=== PATIENT | male | born 1990 ===

== ENCOUNTER 2019-09-29 13:34 | Inpatient (IN) | payer SELFPAY ==
[2019-09-29 14:29] LABS: Basophils % (Auto) 0.9 % (0.0-1.8); Eosinophils # (Auto) 0.1 K/mm3 (0.0-0.4); Eosinophils % (Auto) 1.7 % (0.0-4.3); Hemoglobin 16.7 gm/dl (11.8-15.2); Lymphocytes # (Auto) 2.7 K/mm3 (1.2-5.4); Lymphocytes % (Auto) 46.7 % (13.4-35.0); Mean Corpuscular HGB Conc 35 % (32-34); Mean Corpuscular Volume 89 fl (84-94); Monocytes # (Auto) 0.3 K/mm3 (0.0-0.8); Monocytes % (Auto) 5.2 % (0.0-7.3); Platelet Count 192 K/mm3 (140-440); Red Blood Count 5.37 M/mm3 (3.65-5.03); Red Cell Distribution Width 13.4 % (13.2-15.2)
[2019-09-29 14:39] LABS: BUN/Creatinine Ratio 13; Blood Urea Nitrogen 12 mg/dL (9-20); Calcium 9.4 mg/dL (8.4-10.2); Hemolysis Index 45
--- NOTE | 2019-09-29 14:52 | Emergency Department Report ---
Blank Doc - Documentation Documentation: 29 y/o diabetic man with elevated blood sugar labs indicate DKA\ Plan admission
[2019-09-29] MEDS ORDERED: DEXTROSE 50% IN WATER (25GM) 50 ML SYRINGE IV PRN (14:59)
[2019-09-29] MEDS ORDERED: SODIUM CHLORIDE 0.9% 1000 ML 1,000 ML IV ONE ×2 (14:59→15:01)
[2019-09-29] MEDS ORDERED: INSULIN REGULAR, HUMAN 100 UNITS in SODIUM CHLORIDE 0.9% 99 ML IV SCH ×2 (15:00→21:00)
--- NOTE | 2019-09-29 15:12 | Emergency Department Report ---
- General Chief complaint: Hyperglycemia Stated complaint: ELEVATED GLOCUSE Time Seen by Provider: 09/29/19 14:48 Source: patient Mode of arrival: Ambulatory Limitations: No Limitations - History of Present Illness Initial comments: 29-year-old male with a past medical history [id number] diabetes presents to the hospital planing of hyperglycemia, fatigue, increased thirst, and increased urination. Patient has been a diabetic for the last 2-1/2 years. He has a history of DKA during admission diagnosis but has not required home insulin use. For the last 1.5 months patient has been out of metformin due to loss of insurance. For the last 1 week patient has been having fatigue, increased thirst, increased urination and had a syncopal episode last weekend. He denies nausea, vomiting, dysuria, fever, shortness of breath, or pain. - Related Data Allergies Allergy/AdvReac Type Severity Reaction Status Date / Time No Known Allergies Allergy Verified 09/29/19 15:10 ED Review of Systems ROS: Stated complaint: ELEVATED GLOCUSE Other details as noted in HPI Comment: All other systems reviewed and negative ED Past Medical Hx - Past Medical History Previous Medical History?: Yes Hx Diabetes: Yes - Surgical History Past Surgical History?: Yes ED Physical Exam - General Limitations: No Limitations - Other Other exam information: General: No acute distress Head: Atraumatic Eyes: normal appearance ENT: Dry mucous membranes Neck: Normal appearance, no midline tenderness Chest: Clear to auscultation bilaterally CV: Regular rate and rhythm Abdomen: Soft, normal bowel sounds, nontender, nondistended, no rebound or guarding Back: Normal inspection Extremity: Normal inspection, full range of motion Neuro: Alert O x 3, no facial asymmetry, speech clear, no gross motor sensory deficit Psych: Appropriate behavior Skin: No rash ED Course Vital Signs 09/29/19 09/29/19 15:16 16:19 Temperature 98 F Pulse Rate 100 H 68 Respiratory 18 18 Rate Blood Pressure 144/82 107/60 [Left] O2 Sat by Pulse 100 Oximetry ED Medical Decision Making - Lab Data Result diagrams: 09/29/19 13:47 09/29/19 13:47 Lab Results 09/29/19 09/29/19 09/29/19 Range/Units 13:47 13:47 13:47 WBC 5.7 (4.5-11.0) K/mm3 RBC 5.37 H (3.65-5.03) M/mm3 Hgb 16.7 H (11.8-15.2) gm/dl Hct 48.0 H (35.5-45.6) % MCV 89 (84-94) fl MCH 31 (28-32) pg MCHC 35 H (32-34) % RDW 13.4 (13.2-15.2) % Plt Count 192 (140-440) K/mm3 Lymph % (Auto) 46.7 H (13.4-35.0) % [place] % (Auto) 5.2 (0.0-7.3) % Eos % (Auto) 1.7 (0.0-4.3) % Baso % (Auto) 0.9 (0.0-1.8) % Lymph # 2.7 (1.2-5.4) K/mm3 [place] # 0.3 (0.0-0.8) K/mm3 Eos # 0.1 (0.0-0.4) K/mm3 Baso # 0.0 (0.0-0.1) K/mm3 Seg Neutrophils % 45.5 (40.0-70.0) % Seg Neutrophils # 2.6 (1.8-7.7) K/mm3 VBG pH 7.268 L (7.320-7.420) Sodium 134 L (137-145) mmol/L Potassium 4.3 (3.6-5.0) mmol/L Chloride 91.0 L (98-107) mmol/L Carbon Dioxide 14 L (22-30) mmol/L Anion Gap 33 mmol/L BUN 12 (9-20) mg/dL Creatinine 0.9 (0.8-1.5) mg/dL Estimated GFR > 60 ml/min BUN/Creatinine Ratio 13 % Glucose 528 H* (75-100) mg/dL POC Glucose (70-105) Calcium 9.4 (8.4-10.2) mg/dL Phosphorus (2.5-4.5) mg/dL Magnesium (1.7-2.3) mg/dL 09/29/19 09/29/19 Range/Units 13:47 13:52 WBC (4.5-11.0) K/mm3 RBC (3.65-5.03) M/mm3 Hgb (11.8-15.2) gm/dl Hct (35.5-45.6) % MCV (84-94) fl MCH (28-32) pg MCHC (32-34) % RDW (13.2-15.2) % Plt Count (140-440) K/mm3 Lymph % (Auto) (13.4-35.0) % [place] % (Auto) (0.0-7.3) % Eos % (Auto) (0.0-4.3) % Baso % (Auto) (0.0-1.8) % Lymph # (1.2-5.4) K/mm3 [place] # (0.0-0.8) K/mm3 Eos # (0.0-0.4) K/mm3 Baso # (0.0-0.1) K/mm3 Seg Neutrophils % (40.0-70.0) % Seg Neutrophils # (1.8-7.7) K/mm3 VBG pH (7.320-7.420) Sodium (137-145) mmol/L Potassium (3.6-5.0) mmol/L Chloride (98-107) mmol/L Carbon Dioxide (22-30) mmol/L Anion Gap mmol/L BUN (9-20) mg/dL Creatinine (0.8-1.5) mg/dL Estimated GFR ml/min BUN/Creatinine Ratio % Glucose (75-100) mg/dL POC Glucose 433 H (70-105) Calcium (8.4-10.2) mg/dL Phosphorus 3.50 (2.5-4.5) mg/dL Magnesium 1.70 (1.7-2.3) mg/dL - Medical Decision Making Patient requires admission to the hospital for DKA treatment as indicated by anion gap acidosis. UA pending at disposition. Treatment initiated with normal saline bolus and insulin drip in the ED. Dr Castillo Hospitalist to admit. Admission orders ICU placed after discussion with Dr Castillo. critical care consult ordered UA with ketosis, no infection - Differential Diagnosis DKA, hyperglycemia, UTI Critical Care Time: No Critical care attestation.: If time is entered above; I have spent that time in minutes in the direct care of this critically ill patient, excluding procedure time. ED Disposition Clinical Impression: DKA (diabetic ketoacidoses), Noncompliance with medication regimen Disposition: 09 OP ADMIT IP TO THIS HOSP Is pt being admited?: Yes Condition: Stable Time of Disposition: 15:12 (Dr Castillo/hosp)
[2019-09-29 16:30] LABS: Bilirubin,Urine NEG (Negative); Blood,Urine NEG (Negative); Color,Urine Colorless (Yellow); Protein,Urine <15 mg/dL mg/dL (Negative); Urobilinogen,Urine < 2.0 mg/dL (<2.0); WBC,Urine < 1.0 /HPF (0.0-6.0)
[2019-09-29] MEDS ORDERED: D5W/0.45% NACL/KCL 20 MEQ 20 MEQ/1,000 ML BAG IV ONE (19:11)
[2019-09-29] MEDS ORDERED: D5W/0.45% NACL/KCL 20 MEQ 20 MEQ/1,000 ML BAG IV SCH ×3 (19:20→21:00)
--- NOTE | 2019-09-29 19:58 | History and Physical Report ---
History of Present Illness Date of examination: 09/29/19 Date of admission: 09/29/19 15:16 Chief complaint: Feeling weak for 1 week History of present illness: 29-year-old [place]uran speaking male with history of diabetes diagnosed 2-1/2 years ago comes in for high blood glucose levels, fatigue increased thirst and increased urination. Patient has not taken metformin for the last 6 weeks. Patient apparently ran out of insurance. Patient is not on insulin. Had a DKA episode 2-1/2 years ago for which she was on insulin drip. Not taking his metformin. No nausea or vomiting. Patient has a high blood glucose levels of 528. Ketones slightly positive. Acetone level pending. Past History Past Medical History: diabetes (Type 1 diabetes versus BIGG) Past Surgical History: No surgical history Social history: lives with family, full code. denies: smoking, alcohol abuse Family history: diabetes Medications and Allergies Allergies Allergy/AdvReac Type Severity Reaction Status Date / Time No Known Allergies Allergy Verified 09/29/19 15:10 Active Meds: Active Medications Dextrose (D50w (25gm) Syringe) 0 ml IV Q30MIN PRN; Protocol PRN Reason: Hypoglycemia Insulin Human Regular 100 (units/ Sodium Chloride) 100 mls @ 1 mls/hr IV TITR KAREN; Protocol Last Titration: 09/29/19 19:15 Dose: 2.5 units/hr, 2.5 mls/hr Documented by: Potassium Chloride/Dextrose/Sod Cl (D5w/0.45% Nacl/Kcl 20 Meq) 20 meq in 1,000 mls @ 125 mls/hr IV DIRECT KAREN Last Admin: 09/29/19 19:21 Dose: 125 mls/hr Documented by: Sodium Chloride (Sodium Chloride Flush Syringe 10 Ml) 10 ml IV PRN NR Stop: 09/29/19 23:50 Review of Systems All systems: negative Constitutional: weight loss, fatigue, weakness Ears, nose, mouth and throat: no ear pain, no ear discharge, no tinnitis, no decreased hearing, no nose pain, no nasal congestion, no nasal discharge, no sinus pressure, no sinus pain Cardiovascular: no chest pain, no orthopnea, no palpitations, no rapid/irregular heart beat, no edema, no syncope, no lightheadedness, no shortness of breath Respiratory: no cough, no cough with sputum, no excessive sputum, no hemoptysis, no shortness of breath, no dyspnea on exertion Gastrointestinal: no abdominal pain, no nausea, no vomiting, no diarrhea, no constipation, no change in bowel habits, no coffee ground emesis Genitourinary Male: urinary frequency, polyuria Rectal: no pain Musculoskeletal: no neck stiffness, no neck pain, no shooting arm pain, no arm numbness/tingling, no low back pain, no shooting leg pain, no leg numbness/t ingling, no redness of joints Integumentary: no rash, no pruritis, no redness, no sores, no wounds, no jaundice, no boils, no blisters Neurological: no head injury, no transient paralysis, no paralysis, no weakness, no parathesias, no numbness, no tingling, no seizures, no syncope, no tremors, no ataxia, no lack of coordination Endocrine: polyphagia, excessive thirst, polydipsia, polyuria, weight change, no cold intolerance, no heat intolerance Hematologic/Lymphatic: no easy bruising, no easy bleeding Allergic/Immunologic: no urticaria, no allergic rhinitis, no wheezing Exam - Constitutional Vitals: Temp Pulse Resp BP Pulse Ox 98 F 65 14 107/67 100 09/29/19 15:16 09/29/19 19:16 09/29/19 19:16 09/29/19 19:16 09/29/19 19:16 General appearance: Present: no acute distress, well-nourished - EENT Eyes: Present: PERRL ENT: hearing intact, clear oral mucosa, other (Tongue dry) - Neck Neck: Present: supple, normal ROM - Respiratory Respiratory effort: normal Respiratory: bilateral: CTA - Cardiovascular Heart rate: 78 Rhythm: regular Heart Sounds: Present: S1 & S2. Absent: rub, click - Extremities Extremities: no ischemia, pulses intact, pulses symmetrical, No edema Peripheral Pulses: within normal limits - Abdominal General gastrointestinal: Present: soft, non-tender, non-distended, normal bowel sounds Male genitourinary: Present: normal - Integumentary Integumentary: Present: clear, warm, dry - Musculoskeletal Musculoskeletal: gait normal, strength equal bilaterally - Psychiatric Psychiatric: appropriate mood/affect, intact judgment & insight - Neurologic Neurologic: CNII-XII intact, moves all extremities - Allied Health Allied health notes reviewed: nursing (Honduran language), case management LACI score - Laci Score Age > 65: (0) No Aspirin use within the Past 7 Days: (0) No 3 or more CAD Risk Factors: (0) No 2 or more Angina events in past 24 hrs: (0) No Known CAD with more than 50% Stenosis: (0) No Elevated Cardiac Markers: (0) No ST Deviation Greater than 0.5mm: (0) No LACI Score: 0 Results - Labs CBC & Chem 7: 09/29/19 13:47 09/30/19 04:37 Labs: Laboratory Last Values WBC 5.7 K/mm3 (4.5-11.0) 09/29/19 13:47 RBC 5.37 M/mm3 (3.65-5.03) H 09/29/19 13:47 Hgb 16.7 gm/dl (11.8-15.2) H 09/29/19 13:47 Hct 48.0 % (35.5-45.6) H 09/29/19 13:47 MCV 89 fl (84-94) 09/29/19 13:47 MCH 31 pg (28-32) 09/29/19 13:47 MCHC 35 % (32-34) H 09/29/19 13:47 RDW 13.4 % (13.2-15.2) 09/29/19 13:47 Plt Count 192 K/mm3 (140-440) 09/29/19 13:47 Lymph % (Auto) 46.7 % (13.4-35.0) H 09/29/19 13:47 [place] % (Auto) 5.2 % (0.0-7.3) 09/29/19 13:47 Eos % (Auto) 1.7 % (0.0-4.3) 09/29/19 13:47 Baso % (Auto) 0.9 % (0.0-1.8) 09/29/19 13:47 Lymph # 2.7 K/mm3 (1.2-5.4) 09/29/19 13:47 [place] # 0.3 K/mm3 (0.0-0.8) 09/29/19 13:47 Eos # 0.1 K/mm3 (0.0-0.4) 09/29/19 13:47 Baso # 0.0 K/mm3 (0.0-0.1) 09/29/19 13:47 Seg Neutrophils % 45.5 % (40.0-70.0) 09/29/19 13:47 Seg Neutrophils # 2.6 K/mm3 (1.8-7.7) 09/29/19 13:47 VBG pH 7.268 (7.320-7.420) L 09/29/19 13:47 Sodium 134 mmol/L (137-145) L 09/29/19 13:47 Potassium 4.3 mmol/L (3.6-5.0) 09/29/19 13:47 Chloride 91.0 mmol/L (98-107) L 09/29/19 13:47 Carbon Dioxide 14 mmol/L (22-30) L 09/29/19 13:47 Anion Gap 33 mmol/L 09/29/19 13:47 BUN 12 mg/dL (9-20) 09/29/19 13:47 Creatinine 0.9 mg/dL (0.8-1.5) 09/29/19 13:47 Estimated GFR > 60 ml/min 09/29/19 13:47 BUN/Creatinine Ratio 13 % 09/29/19 13:47 Glucose 528 mg/dL (75-100) H* 09/29/19 13:47 POC Glucose 178 (70-105) H 09/29/19 19:28 Calcium 9.4 mg/dL (8.4-10.2) 09/29/19 13:47 Phosphorus 3.50 mg/dL (2.5-4.5) 09/29/19 13:47 Magnesium 1.70 mg/dL (1.7-2.3) 09/29/19 13:47 Urine Color Colorless (Yellow) 09/29/19 15:52 Urine Turbidity Clear (Clear) 09/29/19 15:52 Urine pH 5.0 (5.0-7.0) 09/29/19 15:52 Ur Specific [place] 1.025 (1.003-1.030) 09/29/19 15:52 Urine Protein <15 mg/dl mg/dL (Negative) 09/29/19 15:52 Urine Glucose (UA) >=500 mg/dL (Negative) 09/29/19 15:52 Urine Ketones 80 mg/dL (Negative) 09/29/19 15:52 Urine Blood Neg (Negative) 09/29/19 15:52 Urine Nitrite Neg (Negative) 09/29/19 15:52 Urine Bilirubin Neg (Negative) 09/29/19 15:52 Urine Urobilinogen < 2.0 mg/dL (<2.0) 09/29/19 15:52 Ur Leukocyte Esterase Neg (Negative) 09/29/19 15:52 Urine WBC (Auto) < 1.0 /HPF (0.0-6.0) 09/29/19 15:52 Urine RBC (Auto) 1.0 /HPF (0.0-6.0) 09/29/19 15:52 Short CBC 09/29/19 Range/Units 13:47 WBC 5.7 (4.5-11.0) K/mm3 Hgb 16.7 H (11.8-15.2) gm/dl Hct 48.0 H (35.5-45.6) % Plt Count 192 (140-440) K/mm3 BMP 09/29/19 13:47 Sodium 134 L Potassium 4.3 Chloride 91.0 L Carbon Dioxide 14 L BUN 12 Creatinine 0.9 Glucose 528 H* Calcium 9.4 Urine 09/29/19 Range/Units 15:52 Urine Color Colorless (Yellow) Urine pH 5.0 (5.0-7.0) Ur Specific [place] 1.025 (1.003-1.030) Urine Protein <15 mg/dl (Negative) mg/dL Urine Glucose (UA) >=500 (Negative) mg/dL Kaplan/IV: IV Catheter Type [Left Peripheral IV Antecubital] Assessment and Plan Assessment and plan: CCT 32 min Advance Directives: Yes (Full code) VTE prophylaxis?: Chemical Plan of care discussed with patient/family: Yes - Patient Problems (1) DKA (diabetic ketoacidoses) Current Visit: Yes Status: Acute Qualifiers: Diabetes mellitus type: type 1 Plan to address problem: DKA protocol Metabolic acidosis and Anion Gap present. IV Insulin and IV fluids for now NPO (2) Noncompliance with medication regimen Current Visit: Yes Status: Chronic Plan to address problem: COunselled (3) Metabolic acidosis Current Visit: Yes Status: Acute Plan to address problem: IV Insulin and IV Fluids Monitor BMP (4) DVT prophylaxis Current Visit: Yes Status: Acute Plan to address problem: On Heparin and GI prohylaxis
[2019-09-29] MEDS ORDERED: INSULIN LISPRO 100 UNIT/ML SUB-Q SCH (20:00)
[2019-09-29] MEDS ORDERED: SODIUM CHLORIDE 0.9% 1000 ML 1,000 ML IV SCH (20:00)
[2019-09-29] MEDS ORDERED: INSULIN REGULAR, HUMAN 100 UNITS/1 ML ONE (20:20)
[2019-09-29] MEDS ORDERED: INSULIN LISPRO 100 UNIT/ML SUB-Q ONE (20:36)
[2019-09-29 20:47] LABS: BUN/Creatinine Ratio 9; Blood Urea Nitrogen 8 mg/dL (9-20); Calcium 8.6 mg/dL (8.4-10.2); Hemolysis Index 15
[2019-09-29] MEDS ORDERED: SODIUM CHLORIDE 0.9% 1000 ML 1,000 ML ONE (20:49)
[2019-09-29] MEDS: INSULIN NPH/REGULAR 70/30 INJ SUB-Q SCH (21:03)
[2019-09-29] MEDS ORDERED: HEPARIN 5,000 UNIT/1 ML VIAL ONE (22:02)
[2019-09-29 22:33] LABS: BUN/Creatinine Ratio 9; Blood Urea Nitrogen 8 mg/dL (9-20); Calcium 8.8 mg/dL (8.4-10.2); Hemolysis Index 9
[2019-09-29] MEDS: POTASSIUM CHLORIDE 10 MEQ 10 MEQ/100 ML BAG IV SCH ×2 (22:36→22:37)
[2019-09-29] MEDS: HEPARIN 5,000 UNIT/1 ML VIAL SUB-Q SCH (23:05)
[2019-09-29 23:38] LABS: BUN/Creatinine Ratio 10; Blood Urea Nitrogen 8 mg/dL (9-20); Calcium 8.6 mg/dL (8.4-10.2); Hemolysis Index 8
[2019-09-30 00:29] LABS: BUN/Creatinine Ratio 9; Blood Urea Nitrogen 8 mg/dL (9-20); Calcium 8.7 mg/dL (8.4-10.2); Hemolysis Index 11
[2019-09-30 01:26] LABS: BUN/Creatinine Ratio 10; Blood Urea Nitrogen 8 mg/dL (9-20); Calcium 8.5 mg/dL (8.4-10.2); Hemolysis Index 10
[2019-09-30 03:24] LABS: BUN/Creatinine Ratio 11; Blood Urea Nitrogen 8 mg/dL (9-20); Calcium 8.5 mg/dL (8.4-10.2); Hemolysis Index 11
[2019-09-30] MEDS ORDERED: POTASSIUM CHLORIDE ER 20 MEQ TAB PO ONE ×6 (04:09→18:00)
[2019-09-30] MEDS ORDERED: D5W/0.45% NACL/KCL 20 MEQ 20 MEQ/1,000 ML BAG IV ONE (04:25)
[2019-09-30 05:33] LABS: BUN/Creatinine Ratio 10; Blood Urea Nitrogen 8 mg/dL (9-20); Calcium 8.6 mg/dL (8.4-10.2); Hemolysis Index 8
--- NOTE | 2019-09-30 05:51 | Event Note ---
Date: 09/30/19 AG has cloed from 33 to 20 BG levels are improved Downgraded to med surg
[2019-09-30] MEDS ORDERED: INSULIN LISPRO 100 UNIT/ML SUB-Q ONE ×2 (06:21→11:32)
[2019-09-30] MEDS: INSULIN LISPRO 100 UNIT/ML SUB-Q SCH ×4 (06:32→18:03)
[2019-09-30] MEDS: INSULIN NPH/REGULAR 70/30 INJ SUB-Q SCH ×2 (09:06→17:41)
[2019-09-30] MEDS ORDERED: HEPARIN 5,000 UNIT/1 ML VIAL ONE (11:06)
[2019-09-30] MEDS: HEPARIN 5,000 UNIT/1 ML VIAL SUB-Q SCH (11:20)
[2019-09-30] MEDS ORDERED: MAGNESIUM SULFATE 2 GM/50 ML BAG IV ONE ×2 (11:51→12:00)
--- NOTE | 2019-09-30 15:08 | Progress Note ---
Assessment and Plan CCT 32 min - Patient Problems (1) DKA (diabetic ketoacidoses) Current Visit: Yes Status: Acute Qualifiers: Diabetes mellitus type: type 1 Plan to address problem: DKA protocol Metabolic acidosis and Anion Gap present. IV Insulin and IV fluids for now Symptomatically better [facility] No nausea vomiting Blood glucose levels ranging from 100-2 50 We will change him to Accu-Cheks every 4 and moderate dose sliding scale coverage (2) Noncompliance with medication regimen Current Visit: Yes Status: Chronic Plan to address problem: COunselled (3) Metabolic acidosis Current Visit: Yes Status: Acute Plan to address problem: IV Insulin and IV Fluids Monitor BMP (4) DVT prophylaxis Current Visit: Yes Status: Acute Plan to address problem: On Heparin and GI prohylaxis Subjective Date of service: 09/30/19 Principal diagnosis: DKA Interval history: Admitted for DKA on insulin drip and IV fluids. 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 Patient was still in the emergency room. Symptomatically better. No nausea or vomiting. Polyphagia and polyuria and polydipsia better. Patient educated about diabetes again. Objective - Constitutional Vitals: Vital Signs - 12hr 09/30/19 09/30/19 09/30/19 03:30 04:00 04:30 Temperature Pulse Rate 52 L 55 L 61 Respiratory 13 13 Rate Blood Pressure 99/59 100/59 120/61 Blood Pressure [Left] O2 Sat by Pulse 99 98 100 Oximetry 09/30/19 09/30/19 09/30/19 05:00 05:30 06:00 Temperature Pulse Rate 54 L 54 L 57 L Respiratory 13 13 13 Rate Blood Pressure 104/62 102/65 110/72 Blood Pressure [Left] O2 Sat by Pulse 99 99 Oximetry 09/30/19 09/30/19 09/30/19 06:41 07:00 07:17 Temperature 97.8 F Pulse Rate 54 L 66 Respiratory 13 14 Rate Blood Pressure 110/72 99/56 Blood Pressure 97/56 [Left] O2 Sat by Pulse 99 100 98 Oximetry 09/30/19 09/30/19 09/30/19 07:39 08:00 08:30 Temperature Pulse Rate 57 L 58 L Respiratory 15 14 Rate Blood Pressure 99/51 99/61 96/59 Blood Pressure [Left] O2 Sat by Pulse 99 98 99 Oximetry 09/30/19 09/30/19 09/30/19 09:00 09:30 10:00 Temperature Pulse Rate 69 62 65 Respiratory 13 10 L 11 L Rate Blood Pressure 98/48 112/69 110/58 Blood Pressure [Left] O2 Sat by Pulse 100 99 98 Oximetry 09/30/19 09/30/19 09/30/19 10:30 10:51 11:01 Temperature Pulse Rate 56 L 59 L 60 Respiratory 13 14 13 Rate Blood Pressure 100/46 100/46 91/46 Blood Pressure [Left] O2 Sat by Pulse 100 98 98 Oximetry 09/30/19 09/30/19 09/30/19 11:11 11:21 11:30 Temperature Pulse Rate 65 62 Respiratory 17 14 Rate Blood Pressure 100/46 100/46 108/71 Blood Pressure [Left] O2 Sat by Pulse 97 99 100 Oximetry 09/30/19 09/30/19 11:41 13:17 Temperature 97.8 F Pulse Rate 70 62 Respiratory 13 14 Rate Blood Pressure 108/71 94/47 Blood Pressure [Left] O2 Sat by Pulse 99 98 Oximetry General appearance: Present: no acute distress, well-nourished - EENT Eyes: PERRL, EOM intact ENT: hearing intact, clear oral mucosa Ears: bilateral: normal - Neck Neck: supple, normal ROM - Respiratory Respiratory effort: normal Respiratory: bilateral: CTA - Breasts Breasts: normal - Cardiovascular Rhythm: regular Heart Sounds: Present: S1 & S2. Absent: gallop, rub Extremities: pulses intact, No edema, normal color, Full ROM - Gastrointestinal General gastrointestinal: Present: soft, non-tender, non-distended, normal bowel sounds - Genitourinary Male genitourinary: normal - Integumentary Integumentary: clear, warm, dry - Musculoskeletal Musculoskeletal: 1, strength equal bilaterally - Neurologic Neurologic: moves all extremities - Psychiatric Psychiatric: memory intact, appropriate mood/affect, intact judgment & insight - Labs CBC & Chem 7: 09/29/19 13:47 09/30/19 04:37 Labs: Abnormal lab results 09/29/19 09/29/19 09/29/19 Range/Units 17:15 18:27 19:28 Potassium (3.6-5.0) mmol/L Carbon Dioxide (22-30) mmol/L BUN (9-20) mg/dL Creatinine (0.8-1.5) mg/dL Glucose (75-100) mg/dL POC Glucose 293 H 222 H 178 H (70-105) Magnesium (1.7-2.3) mg/dL 09/29/19 09/29/19 09/29/19 Range/Units 19:29 20:19 21:27 Potassium 3.5 L (3.6-5.0) mmol/L Carbon Dioxide 15 L (22-30) mmol/L BUN 8 L (9-20) mg/dL Creatinine (0.8-1.5) mg/dL Glucose 194 H (75-100) mg/dL POC Glucose 184 H 173 H (70-105) Magnesium (1.7-2.3) mg/dL 09/29/19 09/29/19 09/29/19 Range/Units 21:43 21:43 22:41 Potassium (3.6-5.0) mmol/L Carbon Dioxide 18 L (22-30) mmol/L BUN 8 L (9-20) mg/dL Creatinine (0.8-1.5) mg/dL Glucose 189 H (75-100) mg/dL POC Glucose 178 H (70-105) Magnesium 1.60 L (1.7-2.3) mg/dL 09/29/19 09/29/19 09/29/19 Range/Units 22:44 23:45 23:52 Potassium 3.5 L 3.3 L (3.6-5.0) mmol/L Carbon Dioxide 18 L 20 L (22-30) mmol/L BUN 8 L 8 L (9-20) mg/dL Creatinine (0.8-1.5) mg/dL Glucose 180 H 159 H (75-100) mg/dL POC Glucose 144 H (70-105) Magnesium (1.7-2.3) mg/dL 09/30/19 09/30/19 09/30/19 Range/Units 00:47 02:33 04:14 Potassium 3.0 L 3.0 L (3.6-5.0) mmol/L Carbon Dioxide 18 L 19 L (22-30) mmol/L BUN 8 L 8 L (9-20) mg/dL Creatinine 0.7 L (0.8-1.5) mg/dL Glucose 169 H 169 H (75-100) mg/dL POC Glucose 157 H (70-105) Magnesium (1.7-2.3) mg/dL 09/30/19 09/30/19 09/30/19 Range/Units 04:37 06:40 11:38 Potassium 3.0 L (3.6-5.0) mmol/L Carbon Dioxide 20 L (22-30) mmol/L BUN 8 L (9-20) mg/dL Creatinine (0.8-1.5) mg/dL Glucose 155 H (75-100) mg/dL POC Glucose 108 H 251 H (70-105) Magnesium (1.7-2.3) mg/dL
[2019-09-30 16:45] VITALS: BP 93/48
[2019-09-30 17:31] LABS: BUN/Creatinine Ratio 10; Blood Urea Nitrogen 8 mg/dL (9-20); Calcium 8.8 mg/dL (8.4-10.2); Hemolysis Index 19
--- NOTE | 2019-09-30 18:15 | Discharge Summary ---
Providers - Providers Date of Admission: 09/29/19 15:16 Date of discharge: 09/30/19 Attending physician: MUKUND GARZA 09/29/19 14:59 Consult to Dietitian/Nutrition [CONS] Routine Physician Instructions: Reason For Exam: DKA Reason for Consult: Nutrition Recommendations Reason for Consult: Diet education 09/29/19 19:58 Consult to Dietitian/Nutrition [CONS] Routine Physician Instructions: Teach 1800-calorie diabetic diet Reason For Exam: Uncontrolled diabetes Reason for Consult: Pt needs oral supplement Primary care physician: PAUL FRANCES Hospitalization Condition: Stable Hospital course: (1) DKA (diabetic ketoacidoses) Current Visit: Yes Status: Acute Qualifiers: Diabetes mellitus type: type 1 Plan to address problem: DKA protocol DKA resolved Blood glucose levels reasonable Asymptomatic (2) Noncompliance with medication regimen Current Visit: Yes Status: Chronic Plan to address problem: COunselled (3) Metabolic acidosis Current Visit: Yes Status: Acute Plan to address problem: Anion gap closed Patient counseled about taking insulin twice a day on a regular basis and follow-up with her PCP Patient to take Novolin 70/30 10 units twice a day and increase the dosage depending on the blood glucose levels Patient given prescription for Novolin 70/30 10 units twice a day 1 vial and insulin syringes and lancets/strips for the glucometer he has at home. Patient was given a sliding scale. Patient to follow-up with his PCP in the next 4 to 7 days. (4) Hypo-magnesemia Current Visit: Yes Status: Acute Plan to address problem: Magnesium level went up from 1.6-1.9. ( 5)Hypokalemia Corrected Subjective Date of service: 09/30/19 Principal diagnosis: DKA Interval history: Admitted for DKA on insulin drip and IV fluids. 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 Patient was still in the emergency room. Symptomatically better. No nausea or vomiting. Polyphagia and polyuria and polydipsia better. Patient educated about diabetes again. Patient improved over the next 30 hours back to normal. Patient wants to go home. Disposition: TO HOME OR SELFCARE Core Measure Documentation - Palliative Care Palliative Care/ Comfort Measures: Not Applicable - Core Measures Any of the following diagnoses?: none Exam - Constitutional Vitals: Temp Pulse Resp BP Pulse Ox 97.8 F 64 12 93/48 99 09/30/19 16:43 09/30/19 16:43 09/30/19 16:43 09/30/19 16:43 09/30/19 16:43 General appearance: Present: no acute distress, well-nourished - EENT Eyes: Present: PERRL ENT: hearing intact, clear oral mucosa - Neck Neck: Present: supple, normal ROM - Respiratory Respiratory effort: normal Respiratory: bilateral: CTA - Cardiovascular Heart rate: 78 Rhythm: regular Heart Sounds: Present: S1 & S2. Absent: rub, click - Extremities Extremities: pulses symmetrical, No edema Peripheral Pulses: within normal limits - Abdominal General gastrointestinal: Present: soft, non-tender, non-distended, normal bowel sounds Male genitourinary: Present: normal - Integumentary Integumentary: Present: clear, warm, dry - Musculoskeletal Musculoskeletal: gait normal, strength equal bilaterally - Psychiatric Psychiatric: appropriate mood/affect, intact judgment & insight - Neurologic Neurologic: CNII-XII intact, moves all extremities Plan Activity: no restrictions Diet: diabetic Special Instructions: smoking cessation Follow up with: CALLIE LAUGHLIN PA [Primary Care Provider] - 7 Days Prescriptions: Insulin NPH/Regular [NovoLIN 70/30] 10 unit SUB-Q BIDDIAB #1 vial Syring W-Ndl,Disp,Insul,0.5 ml [Ultra Comfort] 1 each MC BID #100 disp.syrin
[2019-09-30] MEDS ORDERED: FLU VACC QUAD 2019-20 (3 YR UP)/PF 60 MCG/0.5 ML SYRINGE IM ONE (20:00)
[2019-09-30] MEDS ORDERED: INSULIN LISPRO 100 UNIT/ML SUB-Q SCH (22:00)
== END 2019-09-30 20:02 | disposition home or self-care (01) | DRG 639 ==
LOC: ED 13:34 → CC1 15:16 → 3A 20:01 → IMCU 20:58 → CC1 21:23 → 3A 09-30 09:29
PROVIDERS: ADMIT Internal Medicine; ATTEND Internal Medicine
DX: E10.10 Type 1 diabetes mellitus with ketoacidosis without coma (principal); E83.42 Hypomagnesemia; E87.6 Hypokalemia; Z91.14 Patient's other noncompliance with medication regimen; Z83.3 Family history of diabetes mellitus
CPT/HCPCS: 36415; 80048; 81001; 82805; 82962; 83735; 84100; 85025; 90686; 96372; G0378; J1644; J1815; J3475; J7030